=== PATIENT | female | born 1985 | race Caucasian/White ===

== ENCOUNTER 2020-12-07 08:52 | Emergency (ER) | payer MEDICAID ==
[~2020-12-07] VITALS: Ht 157.5 cm; Wt 51.3 kg
--- NOTE | 2020-12-07 09:00 | NUR ---
The patient is , from homeless half-way, c/o chills, body aches and weakness and nausea x 24hrs. In room air and denies SOB. Respiration regular and unlabored. Will continue to monitor the patient.
[2020-12-07] MEDS ORDERED: ONDANSETRON 4 MG TAB.RAPDIS SL ONE (09:30)
[2020-12-07] MEDS ORDERED: ELECTROLYTE,ORAL 1,000 ML BOTTLE PO ONE (09:30)
[2020-12-07] MEDS ORDERED: ELECTROLYTE,ORAL 1,000 ML BOTTLE ONE (09:30)
[2020-12-07] MEDS ORDERED: IBUPROFEN 600 MG TABLET PO ONE (09:30)
--- NOTE | 2020-12-07 09:35 | NUR ---
COVID SWAB SENT.
[2020-12-07] MEDS ORDERED: IBUPROFEN 600 MG TABLET ONE (09:43)
[2020-12-07] MEDS ORDERED: ONDANSETRON 4 MG TAB.RAPDIS ONE (09:44)
[2020-12-07] MEDS ORDERED: ONDA4TAB5 PO (10:33)
[2020-12-07] MEDS ORDERED: IBUP-1955 PO (10:33)
--- NOTE | 2020-12-07 10:44 | NUR ---
Patient a/ox4, ambulatory with steady gait, breathing even and unlabored, no sob noted. Patient discharged to home in stable condition. Written and verbal after care instructions given. Patient verbalizes understanding of instruction.
[2020-12-07 10:45] VITALS: BP 101/64
== END 2020-12-07 10:45 | disposition home or self-care (01) ==
LOC: ER 08:58
DX: U07.1 COVID-19 (principal); R11.0 Nausea; R51.9 Headache, unspecified; Z59.0 Homelessness
CPT/HCPCS: 99284; C9803; Q0162; U0003

== ENCOUNTER 2021-10-21 21:11 | Emergency (ER) | payer MEDICAID ==
[~2021-10-21] VITALS: Ht 157.5 cm; Wt 61.2 kg
[~2021-10-21 21:11] MED LIST: IBUP-1955 PO; ONDA4TAB5 PO
--- NOTE | 2021-10-21 21:25 | NUR ---
BIBS FOR C/O MID STERNAL CP AND BILATERAL LOWER BACK. COMPLETED A DOSE OF DOXY FEW DAYS AGO FOR "KIDNEY INFECTION". PATIENT ALERT AND ORIENTED X3. AMBULATORY WITH NON LABORED BREATHING IN BED 06 AWAITING MD SHAH.
--- NOTE | 2021-10-21 22:17 | NUR ---
URINE COLLECTED AND SENT TO LAB
--- NOTE | 2021-10-21 22:19 | NUR ---
EMT AT BEDSIDE FOR EKG
[2021-10-21 22:56] LABS: BILIRUBIN,URINE NEGATIVE (NEGATIVE); COLOR,URINE YELLOW (YELLOW); LEUKOCYTE ESTERASE ,URINE MODERATE (NEGATIVE); NITRITE, URINE NEGATIVE (NEGATIVE); PROTEIN,URINE NEGATIVE (NEGATIVE); UGLUCOSE NEGATIVE (NEGATIVE); UROBILINOGEN,URINE 0.2 EU/dL (0.2)
[2021-10-21 23:15] LABS: BACTERIA,URINE FEW /HPF (None Seen)
[2021-10-21 23:16] LABS: CALCIUM OXALATE CRYSTALS,UR FEW /HPF (None Seen); SQUAMOUS EPITHELIAL CELL,UR FEW /HPF (None Seen)
[2021-10-21] MEDS ORDERED: KETO10TA2 PO (23:34)
[2021-10-21] MEDS ORDERED: CEPH500C2 PO (23:34)
--- NOTE | 2021-10-21 23:45 | NUR ---
Patient discharged to home in stable condition. Written and verbal after care instructions given. Patient verbalizes understanding of instruction.
[2021-10-21 23:46] VITALS: BP 99/60
[2021-10-22] MEDS ORDERED: KETOROLAC TROMETHAMINE INJ 60 MG/2 ML VIAL IM ONE
[2021-10-22] MEDS ORDERED: CEPHALEXIN MONOHYDRATE 500 MG CAPSULE PO ONE
== END 2021-10-21 23:46 | disposition home or self-care (01) ==
LOC: ER 21:14
DX: N12 Tubulo-interstitial nephritis, not specified as acute or chronic (principal); R07.89 Other chest pain; Z88.8 Allergy status to other drugs, medicaments and biological substances; Z79.899 Other long term (current) drug therapy
CPT/HCPCS: 71045-TC; 81001; 84703-TC; 87086-TC